=== PATIENT | male | born 1975 | race Caucasian/White ===

== ENCOUNTER 2022-10-20 23:51 | Emergency (ER) | payer OTHER ==
[2022-10-21] VITALS: BP 139/83; PULSE 99; RESP 18; BMI 27.8
[2022-10-21] MEDS ORDERED: LACTATED RINGERS SOLUTION 1000 ML INFUS.BAG IV ONE (00:16)
[2022-10-21] MEDS ORDERED: INSULIN REGULAR HUMAN 100 UNITS/ML *VIAL SQ ONE (00:28)
[2022-10-21 00:45] LABS: VENOUS O2 SATURATION 73.8 % (70-80); VENOUS PCO2 44.7 mmHg (38-52); VENOUS PH 7.389 (7.310-7.410)
[2022-10-21 00:47] LABS: BASO % 0.9 % (0-2.0); EOS % 1.5 % (0-4.5); HEMATOCRIT 42.2 % (35.4-49); LYMPH % 30.7 % (8-40); MCH 29.2 pg (25.7-33.7); MCHC 35.5 g/dl (32.0-35.9); MEAN CELL VOLUME 82.3 fl (80-96); MEAN PLT VOLUME 6.5 fl (7.5-11.1); MONO % 6.7 % (3.8-10.2); NEUT % 60.2 % (42.8-82.8); PLATELET COUNT 320 10^3/uL (134-434); RBC 5.13 M/mm3 (4.00-5.60); RDW 13.2 % (11.9-15.9); URINE APPEARANCE CLEAR; URINE BILIRUBIN NEGATIVE (NEGATIVE); URINE COLOR YELLOW; URINE GLUCOSE (UA) 3+ (NEGATIVE); URINE KETONE TRACE (NEGATIVE); URINE LEUK ESTERASE NEGATIVE (NEGATIVE); URINE NITRITE NEGATIVE (NEGATIVE); URINE PROTEIN NEGATIVE (NEGATIVE); URINE UROBILINOGEN 0.2 mg/dL (0.2-1.0); WHITE BLOOD COUNT 8.6 K/mm3 (4.0-10.0)
[2022-10-21 01:05] LABS: CHLORIDE 104 mmol/L (98-107); POTASSIUM 4.5 mmol/L (3.5-5.1); SODIUM 136 mmol/L (136-145)
[2022-10-21 01:07] LABS: CALCIUM 9.4 mg/dL (8.5-10.1)
[2022-10-21 01:08] LABS: ALBUMIN 3.8 g/dl (3.4-5.0); ANION GAP 6 MMOL/L (8-16); BLOOD UREA NITROGEN 22.3 mg/dL (7-18); CO2 26 mmol/L (21-32)
[2022-10-21 01:10] LABS: INR 0.96 (0.83-1.09); PROTHROMBIN TIME (PATIENT) 11.1 SEC (9.7-13.0)
[2022-10-21 01:11] LABS: ACTIVATED PTT 37.9 SECONDS (25.2-36.5); CREATININE 1.2 mg/dL (0.55-1.3); SGOT/AST 18 U/L (15-37); SGPT/ALT 31 U/L (13-61)
[2022-10-21 01:12] LABS: TOT PROT 6.8 g/dl (6.4-8.2)
[2022-10-21 01:13] LABS: BILIRUBIN,TOTAL 0.8 mg/dL (0.2-1)
[2022-10-21 01:14] LABS: ALK PHOS 72 U/L (45-117)
[2022-10-21 01:40] LABS: GLUCOSE,RANDOM 495 mg/dL (74-106)
[2022-10-21 01:55] VITALS: TEMP 97.7
== END 2022-10-21 02:00 | disposition home or self-care (01) ==
LOC: JER 23:51
DX: E10.65 Type 1 diabetes mellitus with hyperglycemia (principal)
CPT/HCPCS: 36415; 80053; 81003; 82010; 82803; 82962; 84484; 85025; 85610; 85730; 93005; 93010; 99284-25